=== PATIENT | male | born 1980 | race Caucasian/White ===

== ENCOUNTER 2018-11-15 14:23 | Emergency (ER) | payer OTHER ==
[~2018-11-15] VITALS: Ht 182.9 cm; Wt 77.1 kg
[~2018-11-15 14:23] MED LIST: CODBUTASA PO; HYDACE5; HYDACE5 PO; META800 PO; Naprosyn500 MG PO; OXYACE5T PO; RXOXYACE PO; Veetids 500500 MG PO
== END 2018-11-15 15:46 | disposition home or self-care (01) ==
LOC: ER 14:23
DX: S81.812A Laceration without foreign body, left lower leg, initial encounter (principal); F17.200 Nicotine dependence, unspecified, uncomplicated; Z23 Encounter for immunization; W31.2XXA Contact with powered woodworking and forming machines, initial encounter
CPT/HCPCS: 12002; 73564; 90471; 90714; 99283-25